=== PATIENT | female | born 1940 | race Caucasian/White ===

== ENCOUNTER 2017-07-31 21:37 | Observation (INO) | payer MEDICARE, OTHER ==
--- NOTE | 2017-07-31 22:02 | Emergency Department Record ---
History of Present Illness - General Chief Complaint: Chest Pain Stated Complaint: CHEST PAIN Time Seen by Provider: 07/31/17 22:00 Source: Patient Mode of Arrival: Ambulatory Limitations: No limitations - History of Present Illness Initial Comments: The patient is here due to a 2 hour hx of mild to moderate chest discomfort. She describes the pain as an aching and like heartburn. It does radiate to her ears at times. She denies any back pain with it, or any SOB, POLLY, sweating or nausea. The patient states she has no hx of similar issues and no cardiac hx. There is mild difficulty obtaining a hx from the patient due to the fact she had a CVA last year. MD Complaint: Chest pain Onset/Timin -: Hour(s) Onset: During rest Severity: Mild Severity scale (1-10): 6 Quality: Other Consistency: Constant Improves With: Nothing Worsens With: Nothing - Related Data Home Medications Medication Instructions Recorded Confirmed Last Taken Allopurinol [Allopurinol] 100 mg PO ASDIR 07/31/17 07/31/17 Unknown Ciprofloxacin HCl/Dexameth 1 drop PO DAILY 07/31/17 07/31/17 Unknown [Ciprodex OTIC Suspension] Clindamycin HCl [Cleocin HCl] 1 tab PO ASDIR 07/31/17 07/31/17 Unknown Doxycycline Hyclate [Doxycycline 1 tab PO ASDIR 07/31/17 07/31/17 Unknown Hyclate] Levothyroxine Sodium [Synthroid] 75 mg PO DAILY 07/31/17 07/31/17 Unknown Lisinopril [Lisinopril] 10 mg PO DAILY 07/31/17 07/31/17 Unknown Raloxifene HCl [Raloxifene HCl] 60 mg PO DAILY 07/31/17 07/31/17 Unknown Rivaroxaban [Xarelto] 20 mg PO DAILY 07/31/17 07/31/17 Unknown Travoprost Opth [Travatan Z Opth] 1 drop OPTH ASDIR 07/31/17 07/31/17 Unknown Allergies Allergy/AdvReac Type Severity Reaction Status Date / Time sulfamethoxazole Allergy RASH Verified 07/31/17 21:51 [From Bactrim] trimethoprim [From Bactrim] Allergy RASH Verified 07/31/17 21:51 Travel Screening - Travel/Exposure Within Last 30 Days Have you traveled within the last 30 days?: No - Travel/Exposure Within Last Year Have you traveled outside the [place] in the last year?: No - Additonal Travel Details Have you been exposed to anyone with a communicable illness?: No - Travel Symptoms Symptom Screening: None Review of Systems Constitutional: Denies: Chills, Fever Eyes: Denies: Eye discharge ENT: Denies: Congestion Respiratory: Denies: Cough, Dyspnea, Hemoptysis Past Medical History - SOCIAL HISTORY Smoking Status: Never smoker Alcohol Use: Occasional Drug Use: None - RESPIRATORY Hx Respiratory Disorders: Yes Hx Pneumonia: Yes - CARDIOVASCULAR Hx Cardio Disorders: No - NEURO Hx Neuro Disorders: Yes Hx CVA: Yes (in November "I have a hard time saying my words sometimes.") - GI Hx GI Disorders: No - Hx Genitourinary Disorders: No - ENDOCRINE Hx Endocrine Disorders: No - MUSCULOSKELETAL Hx Musculoskeletal Disorders: No - PSYCH Hx Psych Problems: No - HEMATOLOGY/ONCOLOGY Hx Hematology/Oncology Disorders: Yes Hx Cancer: Yes Family Medical History Any Significant Family History?: No Physical Exam - General General Appearance: Alert, Oriented x3, Cooperative, No acute distress - Head Head exam: Atraumatic, Normocephalic, Normal inspection - Eye Eye exam: Normal appearance, PERRL, EOMI - ENT Throat exam: Normal inspection. negative: Tonsillar erythema, Tonsillar exudate - Neck Neck exam: Normal inspection, Full ROM. negative: Tenderness - Respiratory Respiratory exam: Normal lung sounds bilaterally. negative: Respiratory distress - Cardiovascular Cardiovascular Exam: Regular rate, Normal rhythm, Normal heart sounds - GI/Abdominal GI/Abdominal exam: Soft, Normal bowel sounds. negative: Tenderness - Extremities Extremities exam: negative: Pedal edema - Neurological Neurological exam: Alert. negative: Motor sensory deficit - Psychiatric Psychiatric exam: negative: Anxious Course Vital Signs 07/31/17 21:43 Pulse Rate 77 Respiratory 18 Rate Blood Pressure 145/125 Pulse Ox 96 - Reevaluation(s) Reevaluation #1: The patient is doing much better at this time. Her pain has resolved with the GI medicine. She is resting comfortably pain free. 07/31/17 22:19 Reevaluation #2: The patient is doing very well at this time. She is resting comfortably with no pain or discomfort. I explained to her that her test results are all WNL's but that due to the nature of her pain we will be recommending to keep her in the hospital overnight. The patient does agree to the plan. 07/31/17 23:17 Reevaluation #3: The patient did have a 2nd EKG performed that was normal. 07/31/17 23:21 Medical Decision Making - Data Complexity MDM Data: Labs Ordered and/or Reviewed, X-Ray Ordered and/or Reviewed, EKG Ordered and/or Reviewed - Lab Data Result diagrams: 07/31/17 21:50 07/31/17 21:50 - EKG Data -: EKG Interpreted by Me EKG: No Acute Changes (Neg for ischemia. Multiple PVC's.) - Radiology Data Radiology results: Image reviewed (CXR: Neg for any acute abnormality. CMG.) Disposition Disposition: Admit Clinical Impression: Atypical chest pain Disposition: Still a Patient at [facility] Decision to Admit: Admit from ER Decision to Admit Date: 07/31/17 Decision to Admit Time: 23:19 Accepting Physician: Honey Time Discussed w/Accepting Physician: 23:19 Condition: (2) Stable Time of Disposition: 23:19 Quality - Quality Measures Quality Measures: N/A - Blood Pressure Screening View Details: Yes Does Patient Have Any of the Following: Active Dx of HTN Blood Pressure Classification: Hypertensive Reading Systolic Measurement: 145 Diastolic Measurement: 125 Screening for High Blood Pressure: Patient Exclusion, Hx of HTN [G9744] First Hypertensive Follow-up Interventions: Referral to alternative/primary care provider.
[2017-07-31] MEDS ORDERED: MAGNESIUM HYDROXIDE/AL HYDROX 30 ML, LIDOCAINE VISC 2% 200 MG PO ONE ×2 (22:09)
[2017-07-31] MEDS ORDERED: SUCRALFATE 1 G/10 ML UD PO ONE (22:17)
[2017-07-31 22:28] LABS: BASO % 0.1 % (0-6); EOS % 3.8 % (0-6); GRAN % 58.6 % (47-80); HEMATOCRIT 41.4 % (35.0-47.0); HEMOGLOBIN 13.2 gm/dl (11.6-16.0); LYMPH % 30.1 % (16-45); MEAN CELL VOLUME 88.5 fl (81-97); MEAN CORPUSCULAR HEMOGLOBIN 28.2 pg (27-33); MEAN CORPUSCULAR HGB CONC 31.9 g/dl (32-36); MEAN PLATELET VOLUME 11.5 fl (7.4-10.4); MONO % 7.4 % (0-9); PLATELET COUNT 234 K/uL (130-400); RED BLOOD COUNT 4.68 M/uL (3.80-5.40); RED CELL DISTRIBUTION WIDTH 14.3 % (11.5-14.5); WHITE BLOOD COUNT W/O DIFF 7.2 K/uL (4.2-12.2)
[2017-07-31 22:44] LABS: BLOOD UREA NITROGEN 10 mg/dL (8-23); CKMB 1.5 ng/mL (<3.77); CREATINE PHOSPHOKINASE 48 U/L (26-192); CREATININE 0.8 mg/dL (0.5-0.9); EST GLOMERULAR FILTRATION RATE > 60 mL/min; GLUCOSE,RANDOM 126 mg/dL (74-109)
[2017-07-31 22:45] LABS: INR 1.05; PROTHROMBIN TIME (PATIENT) 11.4 SECONDS (9.5-12.1)
[2017-07-31 22:46] LABS: TROPONIN I < 0.30 ng/mL (0.00-0.300)
[2017-07-31] MEDS ORDERED: ASPIRIN 325 MG TABLET PO ONE (23:06)
[2017-07-31] MEDS ORDERED: MORPHINE SULFATE 5 MG/ML PFS IVP ONE (23:07)
[2017-08-01] MEDS ORDERED: DOXYCYCLINE HYCLATE PO SCH (00:11)
[2017-08-01] MEDS ORDERED: ALLOPURINOL 100 MG TAB PO SCH (00:11)
[2017-08-01] MEDS ORDERED: ACETAMINOPHEN 500 MG TABLET PO PRN (00:11)
[2017-08-01] MEDS ORDERED: CLINDAMYCIN HCL PO SCH (00:11)
[2017-08-01] MEDS ORDERED: TRAVOPROST OPTH OPTH SCH (00:11)
[2017-08-01 02:33] LABS: CKMB 1.3 ng/mL (<3.77)
[2017-08-01 02:40] LABS: TROPONIN I < 0.30 ng/mL (0.00-0.300)
[2017-08-01] MEDS ORDERED: RIVAROXABAN 20 MG TABLET PO SCH (10:00)
[2017-08-01] MEDS ORDERED: RALOXIFENE HCL 60 MG PO SCH (10:00)
[2017-08-01] MEDS ORDERED: LEVOTHYROXINE SODIUM 75 MCG TABLET PO SCH (10:00)
[2017-08-01] MEDS ORDERED: ASPIRIN 325 MG TAB ENTERIC-COATED PO SCH (10:00)
[2017-08-01] MEDS ORDERED: LISINOPRIL 10 MG TABLET PO SCH (10:00)
[2017-08-01] MEDS ORDERED: CIPROFLOXACIN HCL/DEXAMETHASONE OTIC SUSP OT SCH (10:00)
--- NOTE | 2017-08-01 10:39 | Discharge Note ---
VTE H&P Assessment - Risk for VTE Risk for VTE: Yes Risk Level: Low Risk Assessment Date: 07/31/17 Risk Assessment Time: 23:00 VTE Orders Placed or Will Be Placed: Yes Discharge Medications - Discharge Medications Prescriptions: Magnesium Hydroxide/Al Hydrox [Maalox] 30 ml PO QIDWMHS #1 bottle Omeprazole 20 mg PO DAILY #30 cap. Home Medications: Ambulatory Orders Allopurinol 100 mg PO ASDIR 07/31/17 [Last Taken Unknown] Ciprofloxacin HCl/Dexameth [Ciprodex OTIC Suspension] 1 drop PO DAILY 07/31/17 [ Last Taken Unknown] Doxycycline Hyclate 1 tab PO ASDIR 07/31/17 [Last Taken Unknown] Levothyroxine Sodium [Synthroid] 75 mg PO DAILY 07/31/17 [Last Taken Unknown] Lisinopril 10 mg PO DAILY 07/31/17 [Last Taken Unknown] Raloxifene HCl 60 mg PO DAILY 07/31/17 [Last Taken Unknown] Rivaroxaban [Xarelto] 20 mg PO DAILY 07/31/17 [Last Taken Unknown] Travoprost Opth [Travatan Z Opth] 1 drop OPTH ASDIR 07/31/17 [Last Taken Unknown ] Magnesium Hydroxide/Al Hydrox [Maalox] 30 ml PO QIDWMHS #1 bottle 08/01/17 [ Last Taken Unknown] Omeprazole 20 mg PO DAILY #30 cap. 08/01/17 [Last Taken Unknown] Discharge Note - Date Date of Discharge Note: 08/01/17 Condition: (2) Stable Referrals: BEE AMEZCUA III, M.D. [Primary Care Provider] - Forms: Patient Portal Access
--- NOTE | 2017-08-01 10:42 | Discharge Note ---
VTE H&P Assessment - Risk for VTE Risk for VTE: Yes Risk Level: Low Risk Assessment Date: 07/31/17 Risk Assessment Time: 23:00 VTE Orders Placed or Will Be Placed: Yes Discharge Medications - Discharge Medications Prescriptions: Magnesium Hydroxide/Al Hydrox [Maalox] 30 ml PO QIDWMHS #1 bottle Omeprazole 20 mg PO DAILY #30 cap. Home Medications: Ambulatory Orders Allopurinol 100 mg PO ASDIR 07/31/17 [Last Taken Unknown] Ciprofloxacin HCl/Dexameth [Ciprodex OTIC Suspension] 1 drop PO DAILY 07/31/17 [ Last Taken Unknown] Doxycycline Hyclate 1 tab PO ASDIR 07/31/17 [Last Taken Unknown] Levothyroxine Sodium [Synthroid] 75 mg PO DAILY 07/31/17 [Last Taken Unknown] Lisinopril 10 mg PO DAILY 07/31/17 [Last Taken Unknown] Raloxifene HCl 60 mg PO DAILY 07/31/17 [Last Taken Unknown] Rivaroxaban [Xarelto] 20 mg PO DAILY 07/31/17 [Last Taken Unknown] Travoprost Opth [Travatan Z Opth] 1 drop OPTH ASDIR 07/31/17 [Last Taken Unknown ] Magnesium Hydroxide/Al Hydrox [Maalox] 30 ml PO QIDWMHS #1 bottle 08/01/17 [ Last Taken Unknown] Omeprazole 20 mg PO DAILY #30 cap. 08/01/17 [Last Taken Unknown] Discharge Note - Date Date of Discharge Note: 08/01/17 Condition: (2) Stable Additional Instructions: follow up with Dr. Amezcua next week to have a stress test set up with [facility] take omeprazole 20 mg one a day maalox 30 ml after meals and bedtime return to the ED if worse Prescriptions: Magnesium Hydroxide/Al Hydrox [Maalox] 30 ml PO QIDWMHS #1 bottle Omeprazole 20 mg PO DAILY #30 cap. Referrals: BEE AMEZCUA III, M.D. [Primary Care Provider] - Forms: Patient Portal Access
[2017-08-01 11:20] LABS: CKMB 1.3 ng/mL (<3.77)
[2017-08-01 11:21] LABS: TROPONIN I < 0.30 ng/mL (0.00-0.300)
--- NOTE | 2017-08-03 06:52 | RADIOLOGY REPORT ---
DATE: 08/01/2017. EXAM: PORTABLE CHEST. HISTORY: Difficulty breathing. TECHNIQUE: Portable AP upright view of the chest was performed. FINDINGS: Cardiomegaly. Mild pulmonary vascular congestion. No infiltrate or pleural effusion. IMPRESSION: CARDIOMEGALY WITH MILD CONGESTION. JOB NUMBER: [id number] MTDD
--- NOTE | 2017-08-03 07:21 | History and Physical Report ---
DATE OF ADMISSION: 08/01/2017. This is an observation patient. CHIEF COMPLAINT: Epigastric burning, indigestion, and chest pain. HISTORY OF PRESENT ILLNESS: This 76-year-old female presented to the emergency department with epigastric indigestion that started about 9 p.m. last night after eating [place] food. She tried some Tums, which did not relieve the pain. She felt there was some discomfort in her jaw. She received a GI cocktail in the emergency department, which helped her pain go away. She had a workup in the emergency department with an EKG, which was normal. Cardiac enzymes were negative. She was evaluated by Dr. Juan and admitted to the hospital for serial cardiac enzymes, serial EKGs, and further care. PAST MEDICAL HISTORY: CVA in November 2016, history of atrial fibrillation at the time of her CVA and on Xarelto. She also has a dog bite on the ankle. Dr. Atif Lo is treating her with clindamycin but he charley some fluid out of the area 2-3 days ago and told her it did not look like an infection. The clindamycin maybe upsetting her stomach. She has about 6 pills left. She is also taking both doxycycline for rosacea all the time and the clindamycin. She uses Cipro drops for her itchy ears p.r.n. She has hypothyroidism, hypertension, gout, glaucoma, arthritis. Also, with her CVA, she only had speech difficulties with her CVA in November 2016. She also is having some problems with the lateral left thigh which she calls fascia sera pain. PAST SURGICAL HISTORY: Negative. She has an event monitor in that is being monitored by [facility]. She was told that last time she had it evaluated that no signs of atrial fibrillation on the event monitor. This was placed I believe after her stroke through [facility]. MEDICATIONS: 1. Lisinopril 10 mg daily. 2. Levothyroxine 75 mcg per day. 3. Doxycycline 100 mg b.i.d. 4. Clindamycin 300 mg q.i.d. 5. Allopurinol 100 mg daily. 6. Travatan ophthalmologic drops daily. 7. Xarelto 20 mg daily. 8. Raloxifene 60 mg daily. ALLERGIES: BACTRIM, which causes a rash. FAMILY HISTORY: Negative. SOCIAL HISTORY: She has never smoked. Occasional alcohol use. No drug use. REVIEW OF SYSTEMS: HEENT: No upper respiratory infection symptoms, cough, cold, or congestion. Cardiovascular: See chief complaint. There is some epigastric discomfort. No palpitations. No diaphoresis. No orthopnea. Respiratory: No shortness of breath, cough, cold, or congestion. Negative smoking history. Gastrointestinal: She does have indigestion. The GI cocktail helped her and eating food makes this pain and discomfort worse. She denies any dysphagia, denies vomiting or constipation or diarrhea. Genitourinary: No dysuria, hematuria, frequency, or burning on urination. Musculoskeletal: She does have some arthritis in her joints. Neurological: She had a previous CVA in November 2016 which had affected her speech only. That is pretty well resolved. No visual problems, headaches, or abnormal balance. PSYCH SPECIALIST: No lumps in her breasts or abnormal vaginal bleeding at this time. Endocrine: She has hypothyroidism. No diabetes. Integument: She has a dog bit on the ankle, right ankle lateral. There is some swelling over the lateral malleolus. She had some of the fluid withdrawn by the souvenir and novelty maker who felt it was not affected. She has about 4-6 clindamycin pills left. She is concerned because she thinks that might be causing her indigestion and she would like to stop the clindamycin. The area does not look red, warm, and infected at this time. PHYSICAL EXAMINATION: VITALS: Height 5 feet 10 inches, weight 233 pounds. Temperature 98.7, pulse 62, blood pressure 147/66, respiratory rate 16, pulse ox 96% on room air. HEENT: Pupils are equal, round, and reactive to light and accommodation. Extraocular muscles are intact. Fundoscopic exam is benign. Tympanic membranes are jorgensen. NECK: Supple. No jugular venous distention. No hepatojugular reflux. No carotid bruits. Thyroid is smooth. CARDIOVASCULAR: Regular rate and rhythm without murmurs, clicks, rubs, or gallops. RESPIRATORY: Clear to auscultation. Breath sounds equal bilaterally. ABDOMEN: Soft, nontender. No hepatosplenomegaly, no masses, no tenderness. Bowel sounds are active. No bruits. EXTREMITIES: No pitting edema. No cyanosis, no clubbing. Full range of motion. Peripheral pulses are good. There is a slight amount of edema over the lateral malleolus of the right ankle. BREASTS: Exam deferred. GYNECOLOGICAL: Exam deferred. RECTAL: Exam deferred. NEUROLOGIC: Cranial nerves II-XII intact. No gross defects. Sensation normal, strength normal. Deep tendon reflexes equal bilaterally with Babinski negative. MENTAL STATUS: Alert and oriented x3. IMPRESSION: 1. Epigastric abdominal pain. 2. Gastroesophageal reflux disease. 3. Atypical chest pain with normal cardiac enzymes and normal EKGs. 4. History of atrial fibrillation, on Xarelto. 5. History of cerebrovascular accident, November 2016. Speech deficit at that time which has resolved. 6. History of hypertension. 7. History of hypothyroidism. 8. History of a dog bite 2 weeks ago on the right lateral malleolus. 9. History of gout. RECOMMENDATION: Follow up with her family doctor to get set up with a stress test, possibly Cardiolite stress test by [facility] since she has already seen them and they are monitoring an event monitor. At this point it is safe to go home with only walking as her exercise until she gets a stress test done. Any more symptoms, return to the emergency department for further evaluation. Plan is to discharge the patient and place the patient on omeprazole and Maalox. SRUTHI
--- NOTE | 2017-08-03 07:21 | Discharge Summary ---
DATE: 08/01/2017 at 10:31 a.m. This is an observation patient. DISCHARGE DIAGNOSES: 1. Gastroesophageal reflux disease. 2. Atypical chest pain with normal cardiac enzymes, normal EKGs. 3. History of a dog bite 2 weeks ago and on clindamycin; may be causing indigestion. 4. History of hypothyroidism. 5. History of atrial fibrillation with a CVA in November 2016 which she had some speech deficit which has resolved. She has an event monitor in place being monitored by [facility]. 6. History of gout. 7. History of hypertension. ATTENDING PHYSICIAN: Leopoldo Méndez DO REASON FOR HOSPITALIZATION: Atypical chest pain and indigestion and burning worse with eating. HISTORY OF PRESENT ILLNESS: A 76-year-old female who was at a [employer] restaurant, she developed some epigastric discomfort, took some Tums, did not alleviate the discomfort, came to the emergency department for evaluation. Evaluated by Dr. Juan with normal EKGs and normal cardiac enzymes. He gave her a GI cocktail which relieved the pain, and he admitted her for serial cardiac enzymes and serial EKGs and further evaluation. She had 3 sets of cardiac enzymes which were negative, 3 EKGs which were all negative for any acute changes. She did have some PVCs occasionally. SIGNIFICANT FINDINGS: As stated. WBC 7200, hemoglobin 13.2. The cardiac enzymes, CK-MB, and troponin I were negative x3 time points. BUN 10, creatinine 0.8. THERAPY PROVIDED: The patient was given a GI cocktail and Carafate and her pain has been gone since that time. She did have breakfast this morning and said she felt some indigestion and a little bit of discomfort in her epigastric area after eating breakfast. HOSPITAL COURSE: Improved. No chest pain and walking without any difficulties. CONDITION ON DISCHARGE: Stable and improved. DISCHARGE INSTRUCTIONS: Follow up with Dr. Santiago in 1 week. Walking only until Dr. Santiago evaluates and then sets up an outpatient stress test. Her cardiac enzymes were negative but I do recommend that she get a stress test to make sure this is not a subtle warning symptom for angina. Return to the emergency department if more symptoms. Start omeprazole 20 mg once a day. Maalox 30 mL after meals and at bedtime. Continue her home medications of lisinopril 10 mg daily, levothyroxine 75 mcg daily, doxycycline as prescribed previously for rosacea. Stop the clindamycin. Cipro eardrops as before. Allopurinol 100 mg daily. Travatan drops daily. Xarelto 20 mg a day. Raloxifene 60 mg daily. CC: Mariaelena NEGRO
== END 2017-08-01 11:45 | disposition home or self-care (01) ==
LOC: ER 21:37 → MEDSURG 08-01 00:06
PROVIDERS: ADMIT Emergency Medicine; ATTEND Emergency Medicine
DX: R07.89 Other chest pain (principal); Z86.73 Personal history of transient ischemic attack (TIA), and cerebral infarction without residual deficits; I48.2 Chronic atrial fibrillation; Z79.01 Long term (current) use of anticoagulants; E03.9 Hypothyroidism, unspecified; I10 Essential (primary) hypertension; K21.9 Gastro-esophageal reflux disease without esophagitis
CPT/HCPCS: 93041; 99285 ×2; 82550; 85025; 85730; 85610; 82553 ×2; 84484 ×2; 80048; 71010; 94760; 93005 ×2; 93010 ×2; G0378; J3490; J2270; 99236

== ENCOUNTER 2019-03-10 17:23 | Emergency (ER) | payer MEDICARE, OTHER ==
--- NOTE | 2019-03-10 17:52 | Emergency Department Record ---
History of Present Illness - General Chief complaint: Weakness Stated complaint: WEAKNESS Time Seen by Provider: 03/10/19 17:36 Source: Patient Mode of Arrival: Ambulatory Limitations: No limitations - History of Present Illness Initial comments: The patient is here due to not feeling well for the last month or so. Her main complaints are lower leg weakness that has been progressively worsening over the last month. Sometimes the L leg seems worse than the right. She denies any back pain, STEEL, visual changes or AP. She has had some vague chest discomfort over the last few days. The patient was at the [facility] ER yesterday for all this and was scheduled for an EST at [facility] in the [facility] area this afternoon but somehow it was ordered incorrectly. The test was not completed and she was told to go to the ER for further evaluation. The patient denies any CP or SOB today. MD Complaint: Generalized weakness Onset/Timin -: Week(s) - [place] Coma Scale Eye Response: (4) Open spontaneously Motor Response: (6) Obeys commands Verbal Response: (5) Oriented [place] Total: 15 - Related Data Home Medications Medication Instructions Recorded Confirmed Last Taken Apixaban [Eliquis] 5 mg PO DAILY 03/10/19 03/10/19 03/10/19 Allergies Allergy/AdvReac Type Severity Reaction Status Date / Time sulfamethoxazole Allergy RASH Verified 03/10/19 17:49 [From Bactrim] trimethoprim [From Bactrim] Allergy RASH Verified 03/10/19 17:49 Travel Screening - Travel/Exposure Within Last 30 Days Have you traveled within the last 30 days?: No - Travel/Exposure Within Last Year Have you traveled outside the [place] in the last year?: No - Additonal Travel Details Have you been exposed to anyone with a communicable illness?: No - Travel Symptoms Symptom Screening: None Review of Systems Constitutional: Denies: Chills, Fever Eyes: Denies: Eye discharge ENT: Denies: Congestion Respiratory: Denies: Cough, Dyspnea Cardiovascular: Reports: Chest pain, Dyspnea on exertion Endocrine: Reports: Fatigue Gastrointestinal: Denies: Nausea Genitourinary: Denies: Dysuria Musculoskeletal: Denies: Arthralgia, Back pain Skin: Denies: Bruising Past Medical History - SOCIAL HISTORY Smoking Status: Never smoker - RESPIRATORY Hx Respiratory Disorders: Yes Hx Pneumonia: Yes - CARDIOVASCULAR Hx Cardio Disorders: No - NEURO Hx Neuro Disorders: Yes Hx CVA: Yes (in November "I have a hard time saying my words sometimes.") - GI Hx GI Disorders: No - Hx Genitourinary Disorders: No - ENDOCRINE Hx Endocrine Disorders: No - MUSCULOSKELETAL Hx Musculoskeletal Disorders: No - PSYCH Hx Psych Problems: No - HEMATOLOGY/ONCOLOGY Hx Hematology/Oncology Disorders: Yes Hx Cancer: Yes Family Medical History Any Significant Family History?: No Physical Exam - General General Appearance: Alert, Oriented x3, Cooperative, No acute distress - Head Head exam: Atraumatic, Normocephalic, Normal inspection - Eye Eye exam: Normal appearance, PERRL, EOMI - ENT Throat exam: Normal inspection. negative: Tonsillar erythema, Tonsillar exudate - Neck Neck exam: Normal inspection, Full ROM. negative: Tenderness - Respiratory Respiratory exam: Normal lung sounds bilaterally. negative: Respiratory distress - Cardiovascular Cardiovascular Exam: Regular rate, Normal rhythm, Normal heart sounds - GI/Abdominal GI/Abdominal exam: Soft, Normal bowel sounds. negative: Tenderness - Extremities Extremities exam: Normal inspection, Full ROM, Normal capillary refill. negative: Tenderness - Back Back exam: Reports: Normal inspection - Neurological Neurological exam: Alert, Normal gait (The patient is able to get up from the bed on her own and walk with a steady gait.), Oriented X3, Reflexes normal, Other (The patient is able to get up and walk from the bed on her own with no difficulty.). negative: Abnormal gait, Altered, Motor sensory deficit (the patient's strength and sensation are 5/5 in the upper and lower extremities and are equal.) - Psychiatric Psychiatric exam: negative: Agitated, Anxious - Skin Skin exam: negative: Rash Course Vital Signs 03/10/19 17:30 Temperature 98.5 F Pulse Rate 61 Respiratory 20 Rate Blood Pressure 184/87 Pulse Ox 99 - Reevaluation(s) Reevaluation #1: The patient is doing very well at this time. She has had no CP, SOB, POLLY or sweating today. I did explain the results of our testing to the patient. Due to her constellation of symptoms I did recommend transfer to [facility] to get her tests completed relating to the chest discomfort and weakness. I did explain to the patient that the risks of NOT being transferred are that the patient could go home and have an IA, stroke, become disabled and even . The patient understands and accepts the risks. She presently has proper decision making capacity and understands we cannot be held liable for NOT admitting her or tranferring her. The patient is instructed to see her PCP JONI to discuss these symptoms and to return to the ER for any worsening symptoms. 03/10/19 19:02 Reevaluation #2: The patient did have a neg UA yesterday at [facility]. Her CXR did demonstrate mild CMG and possible mild CHF. 03/10/19 19:07 Medical Decision Making - Data Complexity MDM Data: Labs Ordered and/or Reviewed, X-Ray Ordered and/or Reviewed, EKG Ordered and/or Reviewed - Lab Data Result diagrams: 03/10/19 18:00 03/10/19 18:00 - EKG Data -: EKG Interpreted by Me EKG: No Acute Changes, Unchanged From Previous - Radiology Data Radiology results: Report reviewed (Head CT: Old infarcts, neg for acute changes. (The patient has had 2 previous infarcts in the past which correspond to the areas of the brain that our Rad has identified on the study today. Due to that fact I do believe the CT findings are all chronic.)) Disposition Disposition: Discharge Clinical Impression: Atypical chest pain Disposition: Home, Self-Care Condition: (2) Stable Instructions: Weakness (ED) Additional Instructions: Please continue your regular medicines and see your doctor tomorrow or Thursday for recheck. Return to the ER for any worsening symptoms. Forms: Patient Portal Access Time of Disposition: 19:06 Quality - Quality Measures Quality Measures: N/A - Blood Pressure Screening View Details: Yes Does Patient Have Any of the Following: No Blood Pressure Classification: Pre-Hypertensive BP Reading Systolic Measurement: 184 Diastolic Measurement: 87 Screening for High Blood Pressure: < Pre-Hypertensive BP, F/U Documented > [G8950] Pre-Hypertensive Follow-up Interventions: Referral to alternative/primary care provider.
[2019-03-10 18:09] LABS: ABSOLUTE NEUTROPHIL COUNT 3.43; BASO % 0.3 % (0-6); GRAN % 59.3 % (47-80); HEMATOCRIT 45.8 % (35.0-47.0); HEMOGLOBIN 14.6 gm/dl (11.6-16.0); LYMPH % 28.3 % (16-45); MEAN CELL VOLUME 90.2 fl (81-97); MEAN CORPUSCULAR HEMOGLOBIN 28.7 pg (27-33); MEAN CORPUSCULAR HGB CONC 31.9 g/dl (32-36); MEAN PLATELET VOLUME 11.1 fl (7.4-10.4); MONO % 7.1 % (0-9); PLATELET COUNT 200 K/uL (130-400); RED BLOOD COUNT 5.08 M/uL (3.80-5.40); RED CELL DISTRIBUTION WIDTH 14.5 % (11.5-14.5); WHITE BLOOD COUNT W/O DIFF 5.8 K/uL (4.2-12.2)
[2019-03-10 18:20] LABS: PARTIAL THROMBOPLASTIN TIME 30.3 SECONDS (24.5-39.1); PROTHROMBIN TIME (PATIENT) 10.4 SECONDS (9.5-12.1)
[2019-03-10 18:22] LABS: BLOOD UREA NITROGEN 15 mg/dL (8-23); CREATININE 0.7 mg/dL (0.5-0.9); EST GLOMERULAR FILTRATION RATE > 60 mL/min
[2019-03-10 18:23] LABS: TOTAL PROTEIN 7.9 g/dL (6.6-8.7)
[2019-03-10 18:25] LABS: GLUCOSE,RANDOM 90 mg/dL (74-109)
[2019-03-10 18:27] LABS: ALB/GLOB RATIO 1.3 (1.1-1.8); ALBUMIN 4.5 g/dL (4.0-5.0); ALKALINE PHOSPHATASE 75 U/L (35-104); ALT/SGPT 16 U/L (<33); AST/SGOT 26 U/L (10.0-35.0)
[2019-03-10 18:28] LABS: CREATINE PHOSPHOKINASE 77 U/L (26-192)
[2019-03-10 18:30] LABS: CKMB 1.6 ng/mL (<3.77)
--- NOTE | 2019-03-11 20:08 | CT SCAN REPORT ---
EXAM: CT SCAN HEAD WO CONTRAST HISTORY: EXTREME WEAKNESS. TECHNIQUE: Helical CT scan of the head obtained without intravenous contrast. HAND DOMINANCE: Right. COMPARISON: None. FINDINGS: Moderate size area of decreased density in the left parietooccipital region involving the cortex. There is subcortical low density in the right posterior parietal region. No intracranial hemorrhage. No mass effect or midline shift. Ventricles have normal size. Basal cisterns are patent. There is calcification of the cavernous portion of the carotid arteries. Bony structures are unremarkable. Paranasal sinuses are well aerated. IMPRESSION: 1. FINDINGS ARE CONSISTENT WITH SUBACUTE INFARCTION IN THE LEFT PARIETOOCCIPITAL REGION. THERE IS A SMALLER FOCUS OF INFARCTION IN THE RIGHT POSTERIOR PARIETAL REGION, BOTH WATERSHED AREAS. 2. NO INTRACRANIAL HEMORRHAGE OR MASS EFFECT. JOB NUMBER: [id number] [facility]
== END 2019-03-10 19:37 | disposition home or self-care (01) ==
LOC: ER 17:23
DX: R07.89 Other chest pain (principal); R53.1 Weakness
CPT/HCPCS: 70450; 80053; 82550; 82553; 84443; 84484; 85025; 85610; 85730; 93005; 93010; 99284